=== PATIENT | female | born 1975 | race Hispanic/Latino ===

== ENCOUNTER 2017-08-04 22:39 | Emergency (ER) | payer OTHER, SELFPAY ==
[~2017-08-04 22:39] MED LIST: ISOVUE-370 76%-LOCM 1 ML ONE
[2017-08-04 23:11] LABS: #Basophils 0.1 thou/uL (0.0-0.2); #Eosinphils 0.7 thou/uL (0.0-0.7); #Lymphocytes 1.9 thou/uL (1.20-3.40); #Monocytes 1.2 thou/uL (0.11-0.59); #Neutrophils 6.8 thou/uL (1.40-6.50); %Basophils 0.6 % (0.0-1.0); %Eosinophils 6.7 % (0.0-10.0); %Monocytes 10.7 % (0.0-10.0); Hematocrit 36.5 % (36.0-47.0); Mean Platelet Volume 7.6 fL (7.4-10.4); Red Blood Cell (RBC) Count 3.76 mill/uL (4.20-5.40); White Blood Cell (WBC) Count 10.7 thou/uL (4.8-10.8)
[2017-08-04 23:31] LABS: ALT (SGPT) 36 U/L (8-55); AST (SGOT) 20 U/L (5-34); Alkaline Phosphatase 67 U/L (40-150); Anion Gap 11 mmol/L (10-20); BUN (Urea Nitrogen) 16 mg/dL (7.0-18.7); Bilirubin, Total 0.3 mg/dL (0.2-1.2); Calc. Creatinine Clearance 0 mL/min (70-130); Calcium 9.2 mg/dL (7.8-10.44); Carbon Dioxide 24 mmol/L (22-29); Chloride 104 mmol/L (98-107); Estimated GFR-MDRD 79; Globulin 4.2 g/dL (2.4-3.5); Lipase 33 U/L (8-78)
--- NOTE | 2017-08-05 00:07 | CT ---
CT ABDOMEN AND PELVIS WITH IV AND ORAL CONTRAST: History: Left lower quadrant pain. Comparison: 06-22-13 FINDINGS: The lung bases are clear. The gallbladder is surgically absent. The liver, spleen, kidneys, adrenal g lands, and pancreas otherwise have a normal CT appearance. Diverticula arise from the colon. Near the junction of the left colon and sigmoid colon, inflammation includes thickening of the colon wall and subtle stranding in the adjacent fat. No free fluid or free air are apparent. A 4.6 cm oval well ci rcumscribed cystic lesion is evident at the left adnexa. Follicles arise from the right ovary. IMPRESSION: 1. Recurrent noncomplicated left lower quadrant diverticulitis. 2. Left ovarian cyst. POS: [facility]
[2017-08-05 00:23] LABS: Bilirubin Negative (Negative); Blood, Urine Negative (Negative); Glucose, Urine (Dipstick) Negative (Negative); Ketone, Urine Negative (Negative); Nitrite Negative (Negative); Protein, Urine (Dipstick) Negative (Neg-Trace)
[2017-08-05] MEDS ORDERED: metroNIDAZOLE 500 MG/100 ML BAG ONE (01:08)
== END 2017-08-05 02:35 | disposition home or self-care (01) ==
LOC: ERS 22:39
DX: K57.92 Diverticulitis of intestine, part unspecified, without perforation or abscess without bleeding (principal)
CPT/HCPCS: 36415; 74177; 80053; 81003; 83690; 85025; 96361; 96365; 96368; J0744

== ENCOUNTER 2020-11-26 09:53 | Outpatient (CLI) | payer OTHER | END 2020-11-26 09:54 | disposition home or self-care (01) | LOC: BICMAMMO 09:53 | PROVIDERS: ATTEND Nurse Practitioner Family | DX: N63.12 Unspecified lump in the right breast, upper inner quadrant (principal) | CPT/HCPCS: 77066; G0279 ==